=== PATIENT | male | born 2000 | race Caucasian/White ===

== ENCOUNTER 2022-07-30 13:03 | Emergency (ER) | payer SELFPAY ==
[~2022-07-30] VITALS: Ht 172.7 cm; Wt 68.0 kg
[~2022-07-30 13:03] MED LIST: EPINEPHRINE 0.1MG/ML (1:10,000) 10ML SYR ONE; SODIUM BICARBONATE 8.4% 1 MEQ/ML 50ML SYR IV ONE
[2022-07-30 13:05] VITALS: BP 0/0
== END 2022-07-30 13:09 ==
LOC: ER 13:03
DX: I46.9 Cardiac arrest, cause unspecified (principal)
CPT/HCPCS: 82962; 92950; 99291; J3490